=== PATIENT | female | born 1995 | race American Indian/Alaskan Native ===

== ENCOUNTER 2016-10-24 20:05 | Emergency (ER) | payer MEDICAID ==
[2016-10-24 20:13] VITALS: BP 120/78
[2016-10-24] MEDS ORDERED: metroNIDAZOLE 500 MG Tab PO ONE (21:35)
[2016-10-24] MEDS ORDERED: Azithromycin 250 MG Tab PO ONE (21:35)
[2016-10-24] MEDS ORDERED: cefTRIAXone 250 MG Vial IM ONE (21:35)
--- NOTE | 2016-10-24 21:38 | EDM.PDOC ---
ED HPI GENERAL MEDICAL PROBLEM - General Chief Complaint: [employer]ATION [employer]ILOR Problem Stated Complaint: POSS INFECTED IUD Time Seen by Provider: 10/24/16 20:22 Source of Information: Reports: Patient History Limitations: Reports: No Limitations - History of Present Illness INITIAL COMMENTS - FREE TEXT/NARRATIVE: 21 y/o F concern for possible infected IUD. States she's had malodorous yellow vaginal discharge x 4 days. New sexual partner x 2 weeks, states they're using condoms. He has no symptoms. No abdominal pain. No dysuria. Tried monostat with no change. IUD placed [address] Maurice. No fever. No vomiting. 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 Denies: Dysuria Skin: Reports: No Symptoms ED EXAM, GI/ABD - Physical Exam Exam: See Below Exam Limited By: No Limitations General Appearance: Alert, WD/WN, No Apparent Distress Ears: Normal External Exam Nose: Normal Inspection, Normal Mucosa, No Blood Throat/Mouth: Normal Inspection, Normal Oropharynx, Normal Voice, No Airway Compromise Head: Atraumatic, Normocephalic Neck: Normal Inspection, Supple, Non-Tender, Full Range of Motion Respiratory/Chest: No Respiratory Distress, Lungs Clear, Normal Breath Sounds Cardiovascular: Normal Peripheral Pulses GI/Abdominal Exam: Soft, Non-Tender, No Distention. No: Rebound (Female) Exam: Normal External Exam, Cervical Discharge, Vaginal Discharge, Other (yellow discharge with some cervicitis, no CMT) Extremities: Normal Inspection Neurological: Alert, Oriented, No Motor/Sensory Deficits Psychiatric: Normal Affect, Normal Mood Skin Exam: Warm, Dry, Intact, Normal Color, No Rash Course - Vital Signs Last Recorded V/S: Last Vital Signs Temp 36.6 C 10/24/16 20:12 Pulse 80 10/24/16 20:12 Resp 20 10/24/16 20:12 BP 120/78 10/24/16 20:12 Pulse Ox 100 10/24/16 20:12 - Orders/Labs/Meds Orders: Active Orders 24 hr Category Date Time Status Pelvic Exam, Set Up [RC] ASDIRECTED Care 10/24/16 20:22 Active GC/CHLAMYDIA BY PCR [MOLEC] Stat Lab 10/24/16 20:55 Received Labs: Laboratory Tests 10/24/16 10/24/16 Range/Units 21:25 21:25 Urine Color Yellow (Yellow) Urine Appearance Clear (Clear) Urine pH 6.5 (5.0-8.0) Ur Specific [place] > or = 1.030 (1.005-1.030) Urine Protein 1+ H (Negative) Urine Glucose (UA) Negative (Negative) Urine Ketones Negative (Negative) Urine Occult Blood Trace-intact H (Negative) Urine Nitrite Negative (Negative) Urine Bilirubin Negative (Negative) Urine Urobilinogen 0.2 (0.2-1.0) Ur Leukocyte Esterase Negative (Negative) Urine RBC 0-5 (0-5) /hpf Urine WBC 5-10 H (0-5) /hpf Ur Epithelial Cells 5-10 H (0-5) /hpf Urine Bacteria Rare (FEW) /hpf Urine Mucus Few (FEW) /hpf Urine HCG, Qual Negative (NEGATIVE) Meds: Medications Discontinued Medications Generic Name Dose Route Start Last Admin Trade Name Freq PRN Reason Stop Dose Admin Azithromycin 1,000 mg 10/24/16 21:35 10/24/16 22:33 Zithromax PO 10/24/16 21:36 Not Given ONETIME ONE Ceftriaxone Sodium 250 mg 10/24/16 21:35 10/24/16 22:33 Rocephin IM 10/24/16 21:36 Not Given ONETIME ONE Metronidazole 500 mg 10/24/16 21:35 10/24/16 22:33 Flagyl PO 10/24/16 21:36 Not Given ONETIME ONE - Re-Assessments/Exams Free Text/Narrative Re-Assessment/Exam: 10/24/16 21:53 Swabs sent. Will empirically treat. Discussed abstinence and need for partner treatment once she knows swab results. She'll f/u with Dr. Maurice this week. 10/24/16 23:09 Nurse notified me that patient eloped before her antibiotics were given. Nurse was occupied with critically ill patient at the time. Departure - Departure Time of Disposition: 21:36 Disposition: Home, Self-Care 01 Clinical Impression: Vaginal discharge - Discharge Information Prescriptions: metroNIDAZOLE [Flagyl] 500 mg PO Q8H #21 tablet Instructions: Vaginal Yeast Infection, Adult Referrals: Kelli Maurice MD [Primary Care Provider] - Forms: ED Department Discharge Additional Instructions: 1. Follow up with Dr. Maurice as soon as possible 2. You were given ceftriaxone and azithromycin in the Emergency Department to cover for possible pelvic infection. No sex until your swab results are available so your partner can be treated too if necessary. Dr. Maurice can help you follow up your results. - My Orders Last 24 Hours: My Active Orders 10/24/16 20:22 Pelvic Exam, Set Up [RC] ASDIRECTED 10/24/16 20:55 GC/CHLAMYDIA BY PCR [MOLEC] Stat - Assessment/Plan Last 24 Hours: My Active Orders 10/24/16 20:22 Pelvic Exam, Set Up [RC] ASDIRECTED 10/24/16 20:55 GC/CHLAMYDIA BY PCR [MOLEC] Stat
[2016-10-25 00:30] LABS: N. GONORRHOEAE BY PCR NOT DETECTED
[2016-10-25 00:38] LABS: C. TRACHOMATIS BY PCR DETECTED
== END 2016-10-24 22:32 | disposition home or self-care (01) ==
LOC: SUPCPDRO 20:05 → JD.ED 20:05
DX: N89.8 Other specified noninflammatory disorders of vagina (principal); F17.210 Nicotine dependence, cigarettes, uncomplicated
CPT/HCPCS: 81001; 81025; 87491; 87591; 99283; 99284

== ENCOUNTER 2016-12-02 03:01 | Emergency (ER) | payer MEDICAID ==
[2016-12-02] MEDS ORDERED: Lactated Ringers 1,000 ML IV ONE ×2 (03:09→04:11)
[2016-12-02] MEDS ORDERED: Ondansetron 4 MG/2 ML SDV IVPUSH ONE (03:10)
[2016-12-02] MEDS ORDERED: Ondansetron 4 MG/2 ML SDV ONE (03:14)
--- NOTE | 2016-12-02 03:16 | EDM.PDOC ---
ED HPI GENERAL MEDICAL PROBLEM - General Chief Complaint: Drug or Alcohol Abuse Stated Complaint: UNRESPONSIVE Time Seen by Provider: 12/02/16 03:08 - History of Present Illness INITIAL COMMENTS - FREE TEXT/NARRATIVE: 21-year-old female brought into the emergency room by her significant other with a reaction. The patient is hyperventilating with coaching she can bring her respiratory rate down to communicate. The patient's been drinking too much this evening significant other gives a history of 5 or 6 shots within the last couple of hours they deny other drugs. The patient denies any pain. When she was hyperventilating she did say it was hard for her to slow her rate down however with coaching she could and then she felt better. The patient was started on IV fluids and responded favorably. After this episode cleared she denied any symptoms again denied any drug use. 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: - Past Surgical History HEENT Surgical History: Reports: Oral Surgery Social & Family History - Tobacco Use Smoking Status *Q: Current Every Day Smoker Years of Tobacco use: 6 Packs/Tins Daily: 0.3 Used Tobacco, but Quit: Yes Month Tobacco Last Used: September Second Hand Smoke Exposure: Yes - Caffeine Use Caffeine Use: Reports: None - Alcohol Use Days Per Week of Alcohol Use: 0 - Recreational Drug Use Recreational Drug Use: No ED ROS GENERAL - Review of Systems Review Of Systems: See Below (Initially review of systems not obtainable that after she calmed down it was obtainable) Constitutional: Reports: No Symptoms HEENT: Reports: No Symptoms Respiratory: Reports: No Symptoms Cardiovascular: Reports: No Symptoms GI/Abdominal: Reports: No Symptoms : Reports: No Symptoms Neurological: Denies: Confusion, Dizziness, Headache ED EXAM, GENERAL - Physical Exam Exam: See Below Exam Limited By: Other (Initially upon arrival the patient was hyperventilating when this calmed down the patient was easy to examine and obtain history from) General Appearance: Other (Initially she was quite anxious and hyperventilating when hyperventilation was controlled she was calm and cooperative) Eye Exam: Bilateral Eye: PERRL Ears: Normal External Exam, Normal Canal, Hearing Grossly Normal, Normal TMs Nose: Normal Inspection, Normal Mucosa, No Blood Throat/Mouth: Normal Inspection, Normal Lips, Normal Teeth, Normal Gums, Normal Oropharynx, Normal Voice, No Airway Compromise Head: Atraumatic, Normocephalic Neck: Normal Inspection, Supple, Non-Tender, Full Range of Motion. No: Lymphadenopathy (L), Lymphadenopathy (R) Respiratory/Chest: No Respiratory Distress, Lungs Clear, Normal Breath Sounds, Other (Initially she was hyperventilating when this did resolve her respiratory status was fine) Cardiovascular: Regular Rate, Rhythm, No Edema, No Murmur GI/Abdominal: Normal Bowel Sounds, Soft, Non-Tender Back Exam: Normal Inspection. No: CVA Tenderness (L), CVA Tenderness (R) Extremities: Normal Inspection, No Pedal Edema Neurological: Alert, Other (Initially the patient was hyperventilating obviously acute alcohol intoxication however she was acting like she may have some stimulant medication on board when she stopped hyperventilating she was quite cooperative) Psychiatric: Anxious Course - Vital Signs Last Recorded V/S: Last Vital Signs Temp 36.5 C 12/02/16 03:11 Pulse 124 H 12/02/16 03:11 Resp 35 H 12/02/16 03:11 BP 119/90 12/02/16 03:11 Pulse Ox 100 12/02/16 03:11 - Orders/Labs/Meds Orders: Active Orders 24 hr Category Date Time Status EKG Documentation Completion [RC] STAT Care 12/02/16 03:16 Active Chest 1V Frontal [CR] Stat Exams 12/02/16 03:33 Taken Labs: Laboratory Tests 12/02/16 12/02/16 12/02/16 Range/Units 03:10 03:10 03:20 WBC 11.93 H (3.98-10.04) K/mm3 RBC 5.09 (3.98-5.22) M/mm3 Hgb 15.0 (11.2-15.7) gm/L Hct 44.8 (34.1-44.9) % MCV 88.0 (79.4-94.8) fl MCH 29.5 (25.6-32.2) pg MCHC 33.5 (32.2-35.5) g/dl RDW Std Deviation 46.0 (36.4-46.3) fL Plt Count 288 (182-369) K/mm3 MPV 10.8 (9.4-12.3) fl Neutrophils % (Manual) 62 H (40-60) % Band Neutrophils % 0 (0-10) % Lymphocytes % (Manual) 35 (20-40) % Atypical Lymphs % 0 % Monocytes % (Manual) 3 (2-10) % Eosinophils % (Manual) 0 L (0.7-5.8) % Basophils % (Manual) 0 L (0.1-1.2) Platelet Estimate Adequate Plt Morphology Comment Normal RBC Morph Comment Normal Sodium 141 (136-145) mEq/L Potassium 3.5 (3.5-5.1) mEq/L Chloride 102 (98-107) mEq/L Carbon Dioxide 19 L (21-32) mEq/L Anion Gap 23.5 H (5-15) BUN 9 (7-18) mg/dL Creatinine 0.9 (0.55-1.02) mg/dL Est Cr Clr Drug Dosing TNP Estimated GFR (MDRD) > 60 (>60) mL/min BUN/Creatinine Ratio 10.0 L (14-18) Glucose 111 H (74-106) mg/dL Calcium 10.5 H (8.5-10.1) mg/dL Total Bilirubin 0.6 (0.2-1.0) mg/dL AST 16 (15-37) U/L ALT 26 (14-59) U/L Alkaline Phosphatase 84 (46-116) U/L Total Protein 9.3 H (6.4-8.2) g/dl Albumin 4.9 (3.4-5.0) g/dl Globulin 4.4 gm/dL Albumin/Globulin Ratio 1.1 (1-2) Lipase 117 (73-393) U/L Urine Color (Yellow) Urine Appearance (Clear) Urine pH (5.0-8.0) Ur Specific [place] (1.005-1.030) Urine Protein (Negative) Urine Glucose (UA) (Negative) Urine Ketones (Negative) Urine Occult Blood (Negative) Urine Nitrite (Negative) Urine Bilirubin (Negative) Urine Urobilinogen (0.2-1.0) Ur Leukocyte Esterase (Negative) Urine RBC (0-5) /hpf Urine WBC (0-5) /hpf Ur Epithelial Cells (0-5) /hpf Amorphous Sediment (NOT SEEN) /hpf Urine Bacteria (FEW) /hpf Urine Mucus (FEW) /hpf Urine Opiates Screen Negative (NEGATIVE) Ur Buprenorphine Scrn Negative (NEGATIVE) Ur Oxycodone Screen Negative (NEGATIVE) Urine Methadone Screen Negative (NEGATIVE) Ur Propoxyphene Screen Negative (NEGATIVE) Ur Barbiturates Screen Negative (NEGATIVE) Ur Tricyclics Screen Negative (NEGATIVE) Ur Phencyclidine Scrn Negative (NEGATIVE) Ur Amphetamine Screen Presumptive positive H (NEGATIVE) U Methamphetamines Scrn Presumptive positive H (NEGATIVE) U Benzodiazepines Scrn Presumptive positive H (NEGATIVE) U Cocaine Metab Screen Negative (NEGATIVE) U Marijuana (THC) Screen Presumptive positive H (NEGATIVE) Ethyl Alcohol 0.16 (0.00) gm% 12/02/16 Range/Units 03:20 WBC (3.98-10.04) K/mm3 RBC (3.98-5.22) M/mm3 Hgb (11.2-15.7) gm/L Hct (34.1-44.9) % MCV (79.4-94.8) fl MCH (25.6-32.2) pg MCHC (32.2-35.5) g/dl RDW Std Deviation (36.4-46.3) fL Plt Count (182-369) K/mm3 MPV (9.4-12.3) fl Neutrophils % (Manual) (40-60) % Band Neutrophils % (0-10) % Lymphocytes % (Manual) (20-40) % Atypical Lymphs % % Monocytes % (Manual) (2-10) % Eosinophils % (Manual) (0.7-5.8) % Basophils % (Manual) (0.1-1.2) Platelet Estimate Plt Morphology Comment RBC Morph Comment Sodium (136-145) mEq/L Potassium (3.5-5.1) mEq/L Chloride (98-107) mEq/L Carbon Dioxide (21-32) mEq/L Anion Gap (5-15) BUN (7-18) mg/dL Creatinine (0.55-1.02) mg/dL Est Cr Clr Drug Dosing Estimated GFR (MDRD) (>60) mL/min BUN/Creatinine Ratio (14-18) Glucose (74-106) mg/dL Calcium (8.5-10.1) mg/dL Total Bilirubin (0.2-1.0) mg/dL AST (15-37) U/L ALT (14-59) U/L Alkaline Phosphatase (46-116) U/L Total Protein (6.4-8.2) g/dl Albumin (3.4-5.0) g/dl Globulin gm/dL Albumin/Globulin Ratio (1-2) Lipase (73-393) U/L Urine Color Yellow (Yellow) Urine Appearance Clear (Clear) Urine pH 6.0 (5.0-8.0) Ur Specific [place] 1.020 (1.005-1.030) Urine Protein 1+ H (Negative) Urine Glucose (UA) Negative (Negative) Urine Ketones 2+ H (Negative) Urine Occult Blood Negative (Negative) Urine Nitrite Negative (Negative) Urine Bilirubin Negative (Negative) Urine Urobilinogen 0.2 (0.2-1.0) Ur Leukocyte Esterase Negative (Negative) Urine RBC Not seen (0-5) /hpf Urine WBC 0-5 (0-5) /hpf Ur Epithelial Cells 0-5 (0-5) /hpf Amorphous Sediment Few H (NOT SEEN) /hpf Urine Bacteria Not seen (FEW) /hpf Urine Mucus Not seen (FEW) /hpf Urine Opiates Screen (NEGATIVE) Ur Buprenorphine Scrn (NEGATIVE) Ur Oxycodone Screen (NEGATIVE) Urine Methadone Screen (NEGATIVE) Ur Propoxyphene Screen (NEGATIVE) Ur Barbiturates Screen (NEGATIVE) Ur Tricyclics Screen (NEGATIVE) Ur Phencyclidine Scrn (NEGATIVE) Ur Amphetamine Screen (NEGATIVE) U Methamphetamines Scrn (NEGATIVE) U Benzodiazepines Scrn (NEGATIVE) U Cocaine Metab Screen (NEGATIVE) U Marijuana (THC) Screen (NEGATIVE) Ethyl Alcohol (0.00) gm% Meds: Medications Discontinued Medications Generic Name Dose Route Start Last Admin Trade Name Freq PRN Reason Stop Dose Admin Lactated Ringer's 1,000 mls @ 999 mls/min 12/02/16 03:09 12/02/16 03:27 Ringers, Lactated IV 12/02/16 03:10 999 mls/min .BOLUS ONE Administration Lactated Ringer's 1,000 mls @ 999 mls/hr 12/02/16 04:11 12/02/16 04:18 Ringers, Lactated IV 12/02/16 05:11 999 mls/hr .BOLUS ONE Administration Ondansetron HCl 4 mg 12/02/16 03:10 12/02/16 03:28 Zofran IVPUSH 12/02/16 03:11 Not Given ONETIME ONE Ondansetron HCl Confirm 12/02/16 03:14 12/02/16 03:28 Zofran Administered 12/02/16 03:15 4 mg Dose Administration 4 mg .ROUTE .STK-MED ONE Potassium Chloride 40 meq 12/02/16 05:57 12/02/16 06:00 Klor-Con M20 PO 12/02/16 05:58 40 meq ONETIME ONE Administration - Re-Assessments/Exams Free Text/Narrative Re-Assessment/Exam: 12/02/16 06:11 Upon arrival it was suspected the patient was acutely intoxicated she was acting however like she has stimulant medication on board and she was hyperventilating. When she was able to calm down and stop hyperventilating her situation normalized. Patient was given a couple liters of fluid and labs were obtained blood alcohol was 0.16 toxicology positive for benzodiazepines and methamphetamine and amphetamine patient denied any illicit drugs however did state that she smokes marijuana recently. The patient has been observed and his remained stable here in the emergency department she will be discharged home. Departure - Departure Time of Disposition: 06:12 Disposition: Home, Self-Care 01 Clinical Impression: Alcohol intoxication, Anxiety reaction - Discharge Information Additional Instructions: Return to the emergency room with any questions problems or worsening symptoms. Avoid alcohol as well as illicit drugs. Follow-up with your regular provider on Tuesday for recheck. - My Orders Last 24 Hours: My Active Orders 12/02/16 03:16 EKG Documentation Completion [RC] STAT 12/02/16 03:33 Chest 1V Frontal [CR] Stat - Assessment/Plan Last 24 Hours: My Active Orders 12/02/16 03:16 EKG Documentation Completion [RC] STAT 12/02/16 03:33 Chest 1V Frontal [CR] Stat
[2016-12-02 03:19] VITALS: BP 119/90
[2016-12-02] MEDS ORDERED: Potassium Chloride 20 MEQ Tab.ER PO ONE (05:57)
--- NOTE | 2016-12-02 09:42 | CR ---
Chest: Portable view of the chest was obtained. Comparison: No previous study. Heart size and mediastinum are within normal limits for portable technique. Lungs are clear. Bony structures are grossly intact. Impression: 1. Nothing acute is appreciated on portable chest x-ray. Diagnostic code #1
== END 2016-12-02 06:20 | disposition home or self-care (01) ==
LOC: JD.ED 03:01
DX: F41.9 Anxiety disorder, unspecified (principal); F10.120 Alcohol abuse with intoxication, uncomplicated; F17.210 Nicotine dependence, cigarettes, uncomplicated
CPT/HCPCS: 36415; 71010; 80053; 80306; 81001; 83690; 85025; 93005; 96361; 96374; 99285; A9270; G0480; J2405; J7120; 99284

== ENCOUNTER 2017-02-06 12:20 | Emergency (ER) | payer MEDICAID ==
[2017-02-06 12:28] VITALS: BP 123/87
[2017-02-06] MEDS ORDERED: Sodium Chloride 0.9% 10 ML Syringe FLUSH PRN (12:50)
[2017-02-06] MEDS ORDERED: Ondansetron 4 MG/2 ML SDV IVPUSH ONE (12:50)
[2017-02-06] MEDS ORDERED: Ketorolac 30 MG/ML SDV IVPUSH ONE (12:50)
--- NOTE | 2017-02-06 13:04 | EDM.PDOC ---
ED HPI GENERAL MEDICAL PROBLEM - General Chief Complaint: Respiratory Problem Stated Complaint: SORE THROAT Time Seen by Provider: 02/06/17 12:51 Source of Information: Reports: Patient History Limitations: Reports: No Limitations - History of Present Illness INITIAL COMMENTS - FREE TEXT/NARRATIVE: 22-year-old female presents for evaluation of a cough and sore throat. Patient reports that her cough or started about 4 weeks ago. She was seen at the [facility]. Instructed to use Tylenol or Motrin. No Testing was done such as influenza, strep or any chest x-rays. She states since being seen her symptoms have steadily worsened. She reports that she feels more congested. She states he also sore throat which started about 1 week ago. She reports associated symptoms of chills, rigors, nausea and one episode of vomiting. She also reports headaches and bodyaches. She states that her ears " full". No fevers. Patient is not on any medications. She does have an IUD in place. Reports she is currently on her menstrual cycle has a history of endometriosis therefore she is having worsening cramps and low back pain. She denies any urinary symptoms including dysuria. Denies any recent travel. Reports that her son was initially ill with a cough but his symptoms have since improved. No other ill contacts. 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, - Past Surgical History HEENT Surgical History: Reports: Oral Surgery Social & Family History - Family History Family Medical History: Noncontributory - Tobacco Use Smoking Status *Q: Former Smoker Years of Tobacco use: 6 Packs/Tins Daily: 0.3 Used Tobacco, but Quit: Yes Month Tobacco Last Used: 3 weeks ago Second Hand Smoke Exposure: Yes - Caffeine Use Caffeine Use: Reports: None - Alcohol Use Days Per Week of Alcohol Use: 0 - Recreational Drug Use Recreational Drug Use: No ED ROS GENERAL - Review of Systems Review Of Systems: See Below Constitutional: Reports: Chills, Malaise, Diaphoresis, Decreased Appetite. Denies: Fever HEENT: Reports: Ear Pain, Throat Pain Respiratory: Reports: Cough GI/Abdominal: Reports: Nausea, Vomiting : Reports: Other (states she is currently on her menstrual cycle). Denies: Dysuria Neurological: Reports: Headache ED EXAM, GENERAL - Physical Exam Exam: See Below Exam Limited By: No Limitations General Appearance: Alert, WD/WN, No Apparent Distress Eye Exam: Bilateral Eye: Normal Inspection Ears: Normal External Exam, Other (right TM obscured by cerumen) Ear Exam: Left Ear: TM normal Nose: Normal Inspection Throat/Mouth: Normal Inspection, Normal Voice, No Airway Compromise Respiratory/Chest: No Respiratory Distress, Lungs Clear, Normal Breath Sounds Cardiovascular: Normal Peripheral Pulses, Regular Rate, Rhythm, No Murmur Neurological: Alert, Oriented, Normal Cognition Psychiatric: Normal Affect, Normal Mood Skin Exam: Warm, Dry, Normal Color Course - Vital Signs Last Recorded V/S: Last Vital Signs Temp 36.2 C 02/06/17 12:27 Pulse 88 02/06/17 12:27 Resp 20 02/06/17 12:27 BP 123/87 02/06/17 12:27 Pulse Ox 99 02/06/17 12:27 - Orders/Labs/Meds Orders: Active Orders 24 hr Category Date Time Status Peripheral IV Care [RC] . DIRECTED Care 02/06/17 12:51 Ordered Chest 2V [CR] Stat Exams 02/06/17 12:50 Ordered CULTURE STREP A CONFIRMATION [RM] Stat Lab 02/06/17 13:19 Results STREP SCRN A RAPID W CULT CONF [RM] Stat Lab 02/06/17 12:50 Uncollected Sodium Chloride 0.9% [Saline Flush] Med 02/06/17 12:50 Ordered 10 ml FLUSH ASDIRECTED PRN Peripheral IV Insertion Adult [OM.PC] Routine Oth 02/06/17 12:50 Ordered Medication Orders Sodium Chloride (Saline Flush) 10 ml FLUSH ASDIRECTED PRN PRN Reason: Keep Vein Open Last Admin: 02/06/17 13:09 Dose: 10 ml Labs: Laboratory Tests 11/08/1802/06/17 02/06/17 Range/Units 13:05 13:05 13:05 WBC 12.22 H (3.98-10.04) K/mm3 RBC 4.66 (3.98-5.22) M/mm3 Hgb 14.2 (11.2-15.7) gm/L Hct 42.1 (34.1-44.9) % MCV 90.3 (79.4-94.8) fl MCH 30.5 (25.6-32.2) pg MCHC 33.7 (32.2-35.5) g/dl RDW Std Deviation 45.0 (36.4-46.3) fL Plt Count 256 (182-369) K/mm3 MPV 11.0 (9.4-12.3) fl Neut % (Auto) 69.9 (34.0-71.1) % Lymph % (Auto) 21.1 (19.3-51.7) % [place] % (Auto) 7.7 (4.7-12.5) % Eos % (Auto) 0.3 L (0.7-5.8) Baso % (Auto) 0.7 (0.1-1.2) % Neut # (Auto) 8.54 H (1.56-6.13) K/mm3 Lymph # (Auto) 2.58 (1.18-3.74) K/mm3 [place] # (Auto) 0.94 H (0.24-0.36) K/mm3 Eos # (Auto) 0.04 (0.04-0.36) K/mm3 Baso # (Auto) 0.08 (0.01-0.08) K/mm3 Manual Slide Review Normal smear Sodium 142 (136-145) mEq/L Potassium 3.6 (3.5-5.1) mEq/L Chloride 103 (98-107) mEq/L Carbon Dioxide 24 (21-32) mEq/L Anion Gap 18.6 H (5-15) BUN 9 (7-18) mg/dL Creatinine 0.6 (0.55-1.02) mg/dL Est Cr Clr Drug Dosing 128.08 mL/min Estimated GFR (MDRD) > 60 (>60) mL/min BUN/Creatinine Ratio 15.0 (14-18) Glucose 97 (74-106) mg/dL Calcium 9.5 (8.5-10.1) mg/dL Total Bilirubin 0.5 (0.2-1.0) mg/dL AST 14 L (15-37) U/L ALT 25 (14-59) U/L Alkaline Phosphatase 80 (46-116) U/L Total Protein 9.0 H (6.4-8.2) g/dl Albumin 4.4 (3.4-5.0) g/dl Globulin 4.6 gm/dL Albumin/Globulin Ratio 1.0 (1-2) Monoscreen Negative (NEGATIVE) Meds: Medications Generic Name Dose Route Start Last Admin Trade Name Freq PRN Reason Stop Dose Admin Sodium Chloride 10 ml 02/06/17 12:50 02/06/17 13:09 Saline Flush FLUSH 10 ml ASDIRECTED PRN Administration Keep Vein Open Discontinued Medications Generic Name Dose Route Start Last Admin Trade Name Freq PRN Reason Stop Dose Admin Ketorolac Tromethamine 30 mg 02/06/17 12:50 02/06/17 13:09 Toradol IVPUSH 02/06/17 12:51 30 mg ONETIME ONE Administration Ondansetron HCl 4 mg 02/06/17 12:50 02/06/17 13:08 Zofran IVPUSH 02/06/17 12:51 4 mg ONETIME ONE Administration - Radiology Interpretation Free Text/Narrative:: 2 view chest xray shows no acute intrathoracic process. - Re-Assessments/Exams Free Text/Narrative Re-Assessment/Exam: 02/06/17 14:40 I reviewed the chest xray and labs with the patient. Headaches, nausea and symptoms improved. Will treat for bronchitis. Negative for mono, strep and influenza. Discharge instructions as documented. Departure - Departure Time of Disposition: 14:42 Disposition: Home, Self-Care 01 Condition: Good Clinical Impression: Bronchitis - Discharge Information Prescriptions: Azithromycin [IJP: Azithromycin] 250 mg PO DAILY #6 tab Ondansetron [Zofran ODT] 4 mg PO Q8H PRN #12 tab.dis PRN Reason: Nausea Instructions: Acute Bronchitis Referrals: Adore Calderon MD [Primary Care Provider] - Forms: ED Department Discharge Additional Instructions: take azithromycin as prescribed. 2 tabs PO day 1 then 1 tab PO days 2-5. Recommend [id number] Tylenol or Motrin as needed for additional symptom relief. Follow-up with family medicine provided her symptoms are now much better in 2 weeks. Rest. make sure you are drinking plenty of fluids. Zofran 1 tab sublingual every 8 hours as needed for nausea. Take about 20 to 30 minutes prior to eating. Please return to ER if your symptoms change or worsen. - My Orders Last 24 Hours: My Active Orders 02/06/17 12:50 Chest 2V [CR] Stat STREP SCRN A RAPID W CULT CONF [RM] Stat Sodium Chloride 0.9% [Saline Flush] 10 ml FLUSH ASDIRECTED PRN Peripheral IV Insertion Adult [OM.PC] Routine 02/06/17 12:51 Peripheral IV Care [RC] . DIRECTED 02/06/17 13:19 CULTURE STREP A CONFIRMATION [RM] Stat - Assessment/Plan Last 24 Hours: My Active Orders 02/06/17 12:50 Chest 2V [CR] Stat STREP SCRN A RAPID W CULT CONF [RM] Stat Sodium Chloride 0.9% [Saline Flush] 10 ml FLUSH ASDIRECTED PRN Peripheral IV Insertion Adult [OM.PC] Routine 02/06/17 12:51 Peripheral IV Care [RC] . DIRECTED 02/06/17 13:19 CULTURE STREP A CONFIRMATION [RM] Stat
--- NOTE | 2017-02-07 07:38 | CR ---
Chest: Two views of the chest are obtained. Comparison: Previous chest x-ray of 12/02/16. Heart size and mediastinum are normal. Lungs are clear. Minimal scoliosis is present within the spine. Impression: 1. Incidental finding. Nothing acute is identified on two-view chest x-ray. Diagnostic code #2
== END 2017-02-06 15:02 | disposition home or self-care (01) ==
LOC: JD.ED 12:20
DX: J40 Bronchitis, not specified as acute or chronic (principal); Z79.899 Other long term (current) drug therapy; Z87.891 Personal history of nicotine dependence
CPT/HCPCS: 36415; 71020; 80053; 85025; 86308; 87081; 87430; 87804; 96374; 96375; 99284; J1885; J2405; J7050

== ENCOUNTER 2018-09-15 07:44 | Inpatient (IN) | payer MEDICAID ==
[2018-09-15] MEDS ORDERED: Nalbuphine 10 MG/1 ML Vial IVPUSH PRN (08:14)
[2018-09-15] MEDS ORDERED: Ondansetron 4 MG/2 ML SDV IVPUSH PRN ×2 (08:14→08:57)
[2018-09-15] MEDS ORDERED: Sodium Chloride 0.9% 10 ML Syringe FLUSH PRN (08:14)
[2018-09-15] MEDS ORDERED: Ampicillin 2 GM in Sodium Chloride 0.9% 100 ML IV ONE (08:14)
--- NOTE | 2018-09-15 08:17 | PCM.LDHP ---
L&D History of Present Illness - General Date of Service: 09/15/18 Admit Problem/Dx: Patient Status Order with Admit Dx/Problem 09/15/18 08:14 Patient Status [ADT] Routine Admission Diagnosis/Problem Admission Diagnosis/Problem Normal labor Source of Information: Patient History Limitations: Reports: No Limitations - History of Present Illness Introduction:: Patient is a 23 y/o at 39 3/7 wks who presents in labor. yesterday in clinic found to be about 4 cm dilated. Started ralf this AM. On nursing assessment is 6 cm. Otherwise doing well. 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 (Approximate): - Past Surgical History HEENT Surgical History: Reports: Oral Surgery Social & Family History - Family History Family Medical History: Noncontributory - Tobacco Use Smoking Status *Q: Former Smoker - Caffeine Use Caffeine Use: Reports: None - Alcohol Use Alcohol Use History: No - Recreational Drug Use Recreational Drug Use: No - Sexual History Sexual History: Reports: Sexually Active - Living Situation & Occupation Living situation: Reports: with Significant Other H&P Review of Systems - Review of Systems: Review Of Systems: See Below General: Reports: No Symptoms Pulmonary: Reports: No Symptoms Cardiovascular: Reports: No Symptoms Gastrointestinal: Reports: Abdominal Pain (contractions) Genitourinary: Reports: No Symptoms Musculoskeletal: Reports: No Symptoms Psychiatric: Reports: No Symptoms Neurological: Reports: No Symptoms L&D Exam - Exam Exam: See Below - Vital Signs Weight: 82.1 kg - OB Specific Contraction Intensity: Moderate to Strong Movement: Active Heart Tones: Present Heart Tones per Min: 140 Heart Rate (FHR) Variability: Moderate (6-25 bmp) Presentation: Vertex - Quan Score Quan Score Cervix Position: Anterior Quan Score Consistency: Soft Quan Score Effacement: >80% Quan Score Dilation: > 5 cm Quan Score 's Station: -1 ,0 Quan Score Total: 12 - Exam General: Alert, Oriented, Cooperative Lungs: Clear to Auscultation, Normal Respiratory Effort Cardiovascular: Regular Rate, Regular Rhythm GI/Abdominal Exam: Soft, Non-Tender Genitourinary: Normal external exam Extremities: Normal Inspection Skin: Warm, Dry, Intact - Problem List (1) 39 weeks gestation of SNOMED Code(s): 62110790 ICD Code: Z3A.39 - 39 WEEKS GESTATION OF Status: Acute Current Visit: Yes (2) GBS (group B Streptococcus carrier), +RV culture, currently SNOMED Code(s): 9188223481052, [id number], 1942674194062 ICD Code: O99.820 - STREPTOCOCCUS B CARRIER STATE COMPLICATING Status: Acute Current Visit: Yes (3) Normal labor SNOMED Code(s): 03310186 ICD Code: O80 - ENCOUNTER FOR FULL-TERM UNCOMPLICATED DELIVERY; Z37.9 - OUTCOME OF DELIVERY, UNSPECIFIED Status: Acute Current Visit: Yes Problem List Initiated/Reviewed/Updated: Yes Orders Last 24hrs: Active Orders 24 hr Category Date Time Status Patient Status [ADT] Routine ADT 09/15/18 08:14 Ordered Activity as Tolerated [RC] PFP Care 09/15/18 08:14 Ordered Communication Order [RC] ASDIRECTED Care 09/15/18 08:14 Ordered Heart Tones [RC] ASDIRECTED Care 09/15/18 08:15 Ordered Non Stress Test [RC] PER UNIT ROUTINE Care 09/15/18 08:14 Ordered Notify Provider [RC] PFP Care 09/15/18 08:14 Ordered Notify Provider [RC] PRN Care 09/15/18 08:14 Ordered Peripheral IV Care [RC] . DIRECTED Care 09/15/18 08:15 Ordered Vital Signs [RC] PER UNIT ROUTINE Care 09/15/18 08:14 Ordered Regular Diet [DIET] Diet 09/15/18 Breakfast Ordered CBC W/O DIFF,HEMOGRAM [HEME] Stat Lab 09/15/18 08:14 Ordered RAPID PLASMA REAGIN,RPR [CHEM] Routine Lab 09/15/18 08:14 Ordered TYPE AND SCREEN [BBK] Stat Lab 09/15/18 08:14 Ordered Ampicillin 1 gm Med 09/15/18 08:15 Ordered Sodium Chloride 0.9% [Normal Saline] 100 ml IV Q4H Ampicillin 2 gm Med 09/15/18 08:14 Ordered Sodium Chloride 0.9% [Normal Saline] 100 ml IV ONETIME Lactated Ringers [Ringers, Lactated] 1,000 ml Med 09/15/18 08:15 Ordered IV ASDIRECTED Nalbuphine [Nubain] Med 09/15/18 08:14 Ordered 10 mg IVPUSH Q2H PRN Ondansetron [Zofran] Med 09/15/18 08:14 Ordered 4 mg IVPUSH Q4H PRN Oxytocin/Lactated Ringers [Pitocin in LR 10 Units/1,000 Med 09/15/18 08:15 Ordered ML] 10 unit in 1,000 ml IV .CONTINUOUS Sodium Chloride 0.9% [Saline Flush] Med 09/15/18 08:14 Ordered 10 ml FLUSH ASDIRECTED PRN Electronic Heart Tones Ext w TOCO [WOMSER] Oth 09/15/18 08:14 Ordered Routine Electronic Heart Tones Internal [WOMSER] Per Unit Ot 09/15/18 08:14 Ordered Routine Peripheral IV Insertion Adult [OM.PC] Routine Oth 09/15/18 08:14 Ordered Resuscitation Status Routine Resus Stat 09/15/18 08:14 Ordered Assessment/Plan Comment:: 23 y/o at 39 3/7 wks presents in labor * Labs * GBS positive, will start Ampicillin * Pain management per patient preference * Anticipate
[2018-09-15] MEDS: Lactated Ringers 1,000 ML IV SCH ×3 (08:29→10:26)
[2018-09-15] MEDS ORDERED: fentaNYL 100 MCG/2 ML SDV EPIDUR PRN (08:57)
[2018-09-15] MEDS ORDERED: ePHEDrine 50 MG/ML SDV IVPUSH PRN (08:57)
[2018-09-15] MEDS ORDERED: diphenhydrAMINE 50 MG/ML SDV IVPUSH PRN (08:57)
[2018-09-15] MEDS ORDERED: Bupivacaine/fentaNYL/NS 100 ML Bag EPIDUR SCH (09:00)
--- NOTE | 2018-09-15 11:15 | PCM.PREANE ---
Preanesthetic Assessment - Anesthesia/Transfusion/Family Hx Anesthesia History: Prior Anesthesia Without Reaction Family History of Anesthesia Reaction: No Transfusion History: No Prior Transfusion(s) - Review of Systems General: No Symptoms Pulmonary: No Symptoms Cardiovascular: No Symptoms Gastrointestinal: No Symptoms Neurological: No Symptoms Other: Reports: None - Physical Assessment O2 Sat by Pulse Oximetry: 100 Respiratory Rate: 16 Vital Signs: Last Vital Signs Temp 36.6 C 09/15/18 08:14 Pulse 92 09/15/18 08:14 Resp 16 09/15/18 08:14 BP 125/79 09/15/18 08:14 Pulse Ox 100 09/15/18 08:14 Height: 1.63 m Weight: 82.1 kg ASA Class: 2 Mental Status: Alert & Oriented x3 Airway Class: Mallampati = 1 Dentition: Reports: Normal Dentition Thyro-Mental Finger Breadths: 3 Mouth Opening Finger Breadths: 3 ROM/Head Extension: Full Lungs: Clear to Auscultation, Normal Respiratory Effort Cardiovascular: Regular Rate, Regular Rhythm - Lab Values: Laboratory Last Values WBC 17.31 K/mm3 (3.98-10.04) H 09/15/18 08:35 RBC 3.38 M/mm3 (3.98-5.22) L 09/15/18 08:35 Hgb 9.9 gm/L (11.2-15.7) L D 09/15/18 08:35 Hct 30.9 % (34.1-44.9) L 09/15/18 08:35 MCV 91.4 fl (79.4-94.8) 09/15/18 08:35 MCH 29.3 pg (25.6-32.2) 09/15/18 08:35 MCHC 32.0 g/dl (32.2-35.5) L 09/15/18 08:35 RDW Std Deviation 51.3 fL (36.4-46.3) H 09/15/18 08:35 Plt Count 293 K/mm3 (182-369) 09/15/18 08:35 MPV 11.0 fl (9.4-12.3) 09/15/18 08:35 Blood Type A POSITIVE 09/15/18 08:35 Gel Antibody Screen Negative 09/15/18 08:35 - Allergies Allergies/Adverse Reactions: Allergies Allergy/AdvReac Type Severity Reaction Status Date / Time No Known Allergies Allergy Verified 06/23/15 07:24 - Acknowledgements Anesthesia Type Planned: Epidural Pt an Appropriate Candidate for the Planned Anesthesia: Yes Alternatives and Risks of Anesthesia Discussed w Pt/Guardian: Yes Pt/Guardian Understands and Agrees with Anesthesia Plan: Yes Additional Comments: 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 HEENT Surgical History: Reports: Oral Surgery - SUBSTANCE USE Smoking Status *Q: Former Smoker Second Hand Smoke Exposure: No Recreational Drug Use History: No - HOME MEDS Home Medications: Home Meds PNV95/Ferrous Fumarate/FA [ Tablet] 1 tab PO DAILY 02/21/18 [History] Ondansetron [Zofran ODT] 4 mg PO Q6H PRN #10 tab.dis 02/26/18 [Rx] - CURRENT (IN HOUSE) MEDS Current Meds: Current Medications Diphenhydramine HCl (Benadryl) 25 mg IVPUSH Q6H PRN PRN Reason: Pruritis Ephedrine Sulfate (Ephedrine Sulfate) 5 mg IVPUSH ASDIRECTED PRN PRN Reason: Hypotension Fentanyl (Sublimaze) 100 mcg EPIDUR ONETIME PRN PRN Reason: Pain Fentanyl/Bupivacaine HCl (Fentanyl/Bupivacaine/Ns 2 Mcg-0.125% 100 Ml) 100 ml EPIDUR ASDIRECTED [facility] Ampicillin Sodium 1 gm/ Sodium (Chloride) 100 mls @ 200 mls/hr IV Q4H [facility] Lactated Ringer's (Ringers, Lactated) 1,000 mls @ 100 mls/hr IV ASDIRECTED [facility] Last Admin: 09/15/18 10:26 Dose: 100 mls/hr Oxytocin/Lactated Ringer's (Pitocin In Lr 10 Units/1,000 Ml) 10 unit in 1,000 mls @ 500 mls/hr IV .CONTINUOUS KRISTIAN Nalbuphine HCl (Nubain) 10 mg IVPUSH Q2H PRN PRN Reason: Pain Ondansetron HCl (Zofran) 4 mg IVPUSH Q4H PRN PRN Reason: Nausea/Vomiting Ondansetron HCl (Zofran) 4 mg IVPUSH ONETIME PRN PRN Reason: Nausea/Vomiting Sodium Chloride (Saline Flush) 10 ml FLUSH ASDIRECTED PRN PRN Reason: Keep Vein Open Discontinued Medications Ampicillin Sodium 2 gm/ Sodium (Chloride) 100 mls @ 200 mls/hr IV ONETIME ONE Stop: 09/15/18 08:43 Last Admin: 09/15/18 08:29 Dose: 200 mls/hr
[2018-09-15] MEDS ORDERED: Bupivacaine 0.25% 10 ML SDV ONE (12:00)
[2018-09-15] MEDS: Ampicillin 1 GM in Sodium Chloride 0.9% 100 ML IV SCH ×2 (12:04→16:19)
--- NOTE | 2018-09-15 12:16 | PCM.PNLD ---
Labor Progress Note - VS & Meds Vital Signs: Last Vital Signs Temp 36.6 C 09/15/18 08:14 Pulse 92 09/15/18 08:14 Resp 16 09/15/18 11:15 BP 125/79 09/15/18 08:14 Pulse Ox 100 09/15/18 11:15 Active Medications: Current Medications Diphenhydramine HCl (Benadryl) 25 mg IVPUSH Q6H PRN PRN Reason: Pruritis Ephedrine Sulfate (Ephedrine Sulfate) 5 mg IVPUSH ASDIRECTED PRN PRN Reason: Hypotension Fentanyl (Sublimaze) 100 mcg EPIDUR ONETIME PRN PRN Reason: Pain Fentanyl/Bupivacaine HCl (Fentanyl/Bupivacaine/Ns 2 Mcg-0.125% 100 Ml) 100 ml EPIDUR ASDIRECTED KRISTIAN Ampicillin Sodium 1 gm/ Sodium (Chloride) 100 mls @ 200 mls/hr IV Q4H [facility] Last Admin: 09/15/18 12:04 Dose: 200 mls/hr Lactated Ringer's (Ringers, Lactated) 1,000 mls @ 100 mls/hr IV ASDIRECTED [facility] Last Admin: 09/15/18 10:26 Dose: 100 mls/hr Oxytocin/Lactated Ringer's (Pitocin In Lr 10 Units/1,000 Ml) 10 unit in 1,000 mls @ 500 mls/hr IV .CONTINUOUS KRISTIAN Nalbuphine HCl (Nubain) 10 mg IVPUSH Q2H PRN PRN Reason: Pain Ondansetron HCl (Zofran) 4 mg IVPUSH Q4H PRN PRN Reason: Nausea/Vomiting Ondansetron HCl (Zofran) 4 mg IVPUSH ONETIME PRN PRN Reason: Nausea/Vomiting Sodium Chloride (Saline Flush) 10 ml FLUSH ASDIRECTED PRN PRN Reason: Keep Vein Open Discontinued Medications Ampicillin Sodium 2 gm/ Sodium (Chloride) 100 mls @ 200 mls/hr IV ONETIME ONE Stop: 09/15/18 08:43 Last Admin: 09/15/18 08:29 Dose: 200 mls/hr - Uterine Contractions Uterine Monitoring Mode: External [place] Contraction Intensity: Moderate to Strong - Monitoring Monitor Mode: External Ultrasound Heart Rate (FHR) Baseline: 130 Heart Rate (FHR) Variability: Moderate (6-25 bmp) Accelerations: Present, 15x15 Decelerations: None Strip Review: Category I - Vaginal Exam Dilation (cm): 8-9 Effacement (Percent): 90 Station: -1 Cervical Position: Anterior - Labor Progress (Free Text) Labor Progress: Doing well. Just got 2nd antibiotic dose started. AROM performed with release of scant amount of clear fluid. Continue present management
[2018-09-15] MEDS: Oxytocin/Lactated Ringers 10 UNIT/1,000 ML BAG IV SCH ×2 (15:20→16:41)
--- NOTE | 2018-09-15 15:40 | PCM.DEL ---
L & D Note - General Info Date of Service: 09/15/18 - Delivery Note Labor: Spontaneous Delivery Outcome: Livebirth Delivery Method: Spontaneous Vaginal Delivery-Single Delivery Mode: Spontaneous Presentation: Right Occiput Anterior ([place]) Nuchal Cord: None Anesthesia Type: Epidural Amniotic Fluid Description: Clear Episiotomy Type: None Laceration: None Placenta: Intact, Spontaneous Cord: 3 Vessels Estimated Blood Loss: 200 : Bulb Syringe, Stimulated, Warmed, [address] Used, Warmer Used Delivery Comments (Free Text/Narrative):: Patient found to be complete and began pushing. With maternal pushing effort head delivered from [place] presentation. No nuchal cord present. With gentle downward traction the shoulders and body delivered. Infant placed on maternal abdomen. Cord clamped and cut. Cord blood obtained. Placenta allowed time to separate and expelled intact. Inspection of the perineum showed no laceration. - General Info Date of Service: 09/15/18 - Patient Data Vitals - Most Recent: Last Vital Signs Temp 36.6 C 09/15/18 08:14 Pulse 92 09/15/18 08:14 Resp 16 09/15/18 11:15 BP 125/79 09/15/18 08:14 Pulse Ox 100 09/15/18 11:15 Weight - Most Recent: 82.1 kg I&O - Last 24 Hours: Intake & Output 09/15/18 09/15/18 09/15/18 06:59 14:59 22:59 Intake Total 3200 Balance 3200 Lab Results Last 24 Hours: Laboratory Results - last 24 hr 09/15/18 09/15/18 Range/Units 08:35 08:35 WBC 17.31 H (3.98-10.04) K/mm3 RBC 3.38 L (3.98-5.22) M/mm3 Hgb 9.9 L D (11.2-15.7) gm/L Hct 30.9 L (34.1-44.9) % MCV 91.4 (79.4-94.8) fl MCH 29.3 (25.6-32.2) pg MCHC 32.0 L (32.2-35.5) g/dl RDW Std Deviation 51.3 H (36.4-46.3) fL Plt Count 293 (182-369) K/mm3 MPV 11.0 (9.4-12.3) fl Blood Type A POSITIVE Gel Antibody Screen Negative Med Orders - Current: Current Medications Diphenhydramine HCl (Benadryl) 25 mg IVPUSH Q6H PRN PRN Reason: Pruritis Ephedrine Sulfate (Ephedrine Sulfate) 5 mg IVPUSH ASDIRECTED PRN PRN Reason: Hypotension Fentanyl (Sublimaze) 100 mcg EPIDUR ONETIME PRN PRN Reason: Pain Fentanyl/Bupivacaine HCl (Fentanyl/Bupivacaine/Ns 2 Mcg-0.125% 100 Ml) 100 ml EPIDUR ASDIRECTED [facility] Ampicillin Sodium 1 gm/ Sodium (Chloride) 100 mls @ 200 mls/hr IV Q4H [facility] Last Admin: 09/15/18 12:04 Dose: 200 mls/hr Lactated Ringer's (Ringers, Lactated) 1,000 mls @ 100 mls/hr IV ASDIRECTED [facility] Last Admin: 09/15/18 10:26 Dose: 100 mls/hr Oxytocin/Lactated Ringer's (Pitocin In Lr 10 Units/1,000 Ml) 10 unit in 1,000 mls @ 500 mls/hr IV .CONTINUOUS [facility]IAN Nalbuphine HCl (Nubain) 10 mg IVPUSH Q2H PRN PRN Reason: Pain Ondansetron HCl (Zofran) 4 mg IVPUSH Q4H PRN PRN Reason: Nausea/Vomiting Ondansetron HCl (Zofran) 4 mg IVPUSH ONETIME PRN PRN Reason: Nausea/Vomiting Sodium Chloride (Saline Flush) 10 ml FLUSH ASDIRECTED PRN PRN Reason: Keep Vein Open Discontinued Medications Ampicillin Sodium 2 gm/ Sodium (Chloride) 100 mls @ 200 mls/hr IV ONETIME ONE Stop: 09/15/18 08:43 Last Admin: 09/15/18 08:29 Dose: 200 mls/hr - Problem List & Annotations (1) 39 weeks gestation of SNOMED Code(s): 94646487 Code(s): Z3A.39 - 39 WEEKS GESTATION OF Status: Acute Current Visit: Yes (2) GBS (group B Streptococcus carrier), +RV culture, currently SNOMED Code(s): 4004295847895, 303363128, 4371852196509 Code(s): O99.820 - STREPTOCOCCUS B CARRIER STATE COMPLICATING Status: Acute Current Visit: Yes (3) Normal labor SNOMED Code(s): 58488803 Code(s): O80 - ENCOUNTER FOR FULL-TERM UNCOMPLICATED DELIVERY; Z37.9 - OUTCOME OF DELIVERY, UNSPECIFIED Status: Acute Current Visit: Yes (4) Vaginal delivery SNOMED Code(s): 172573019 Code(s): O80 - ENCOUNTER FOR FULL-TERM UNCOMPLICATED DELIVERY Status: Acute Current Visit: Yes - Problem List Review Problem List Initiated/Reviewed/Updated: Yes - My Orders Last 24 Hours: My Active Orders 09/15/18 08:14 Patient Status [ADT] Routine Activity as Tolerated [RC] PFP Communication Order [RC] ASDIRECTED Non Stress Test [RC] PER UNIT ROUTINE Notify Provider [RC] PFP Notify Provider [RC] PRN Vital Signs [RC] PER UNIT ROUTINE Nalbuphine [Nubain] 10 mg IVPUSH Q2H PRN Ondansetron [Zofran] 4 mg IVPUSH Q4H PRN Sodium Chloride 0.9% [Saline Flush] 10 ml FLUSH ASDIRECTED PRN Electronic Heart Tones Ext w TOCO [WOMSER] Routine Electronic Heart Tones Internal [WOMSER] Per Unit Routine Peripheral IV Insertion Adult [OM.PC] Routine Resuscitation Status Routine 09/15/18 08:15 Heart Tones [RC] ASDIRECTED Peripheral IV Care [RC] . DIRECTED Lactated Ringers [Ringers, Lactated] 1,000 ml IV ASDIRECTED Oxytocin/Lactated Ringers [Pitocin in LR 10 Units/1,000 ML] 10 unit in 1,000 ml IV .CONTINUOUS 09/15/18 08:35 RAPID PLASMA REAGIN,RPR [CHEM] Routine 09/15/18 10:27 PATIENT RETYPE [BBK] Routine 09/15/18 12:15 Ampicillin 1 gm Sodium Chloride 0.9% [Normal Saline] 100 ml IV Q4H 09/15/18 Breakfast Regular Diet [DIET] - Assessment Assessment:: 23 y/o G2 now P2002 PPD#0 from - Plan Plan:: * Routine cares * Encourage breast feeding * Discharge home in 1-2 days
[2018-09-15] MEDS ORDERED: Lanolin 100% Cream 7 GM Tube TOP PRN (16:41)
[2018-09-15] MEDS ORDERED: Benzocaine/Menthol 20%-0.5% Spray 56 GM Canister TOP PRN (16:41)
[2018-09-15] MEDS ORDERED: Acetaminophen 325 MG Tab PO PRN (16:41)
[2018-09-15] MEDS ORDERED: Ibuprofen 600 MG Tab PO PRN (16:41)
[2018-09-15] MEDS ORDERED: Witch Hazel Medicated Pads 40/Jar TOP PRN (16:41)
[2018-09-15] MEDS ORDERED: Docusate Sodium 100 MG Cap PO PRN (16:41)
--- NOTE | 2018-09-16 09:16 | PCM.SN ---
- Free Text/Narrative Note: Post Progress Note PPD # 1 Subjective: Doing well overall. Ambulating without difficulty. Lochia minimal. Voiding without difficulty. Tolerating regular diet without nausea or vomiting. Pain controlled with oral medications. Reports that the majority of her pain is in her back where the epidural was placed. Reports that the Tylenol and ibuprofen has been helping for this. Breast-feeding with bottle supplementation with minimal difficulty. Objective: Vitals: Vital Signs - 24 hr 09/15/18 09/15/18 09/15/18 11:15 17:22 20:14 Temperature 36.6 C 36.7 C Pulse, 85 90 Peripheral Respiratory 16 16 15 Rate Blood Pressure 108/70 108/73 O2 Sat by Pulse 100 98 99 Oximetry 09/16/18 04:54 Temperature 36.6 C Pulse, 79 Peripheral Respiratory 16 Rate Blood Pressure 103/60 O2 Sat by Pulse 97 Oximetry Physical Exam General: Alert and oriented, no acute distress Lungs: Clear to auscultation bilaterally Heart: Regular rate and rhythm Abdomen: Soft, minimal appropriate tenderness, non-distended, fundus midline, nontender, and 1 fingerbreadth below the umbilicus Extremities: Trace edema in bilateral lower extremities ASSESSMENT: 23-year-old female s/p normal vaginal delivery PPD #1, complicated by GBS positive and received antibiotics in labor PLAN: Doing well Breast-feeding with bottle supplementation with minimal difficulty. Assist as needed Lochia minimal. Continue to monitor for appropriate lochia. Continue routine care Anticipate discharge home today Rony Rios MD 9:15 AM 09/16/2018
--- NOTE | 2018-09-16 09:24 | PCM.DCSUM1 ---
Discharge Summary - Hospital Course Free Text/Narrative:: - Delivery Note Labor: Spontaneous Delivery Outcome: Livebirth Infant Delivery Method: Spontaneous Vaginal Delivery-Single Delivery Mode: Spontaneous Presentation: Right Occiput Anterior ([place]) Nuchal Cord: None Anesthesia Type: Epidural Amniotic Fluid Description: Clear Episiotomy Type: None Laceration: None Placenta: Intact, Spontaneous Cord: 3 Vessels Estimated Blood Loss: 200 Robert: Bulb Syringe, Stimulated, Warmed, Crane Used, Warmer Used Delivery Comments (Free Text/Narrative):: Patient found to be complete and began pushing. With maternal pushing effort head delivered from [place] presentation. No nuchal cord present. With gentle downward traction the shoulders and body delivered. placed on maternal abdomen. Cord clamped and cut. Cord blood obtained. Placenta allowed time to separate and expelled intact. Inspection of the perineum showed no laceration. HPI Initial Comments: - Delivery Note Labor: Spontaneous Delivery Outcome: Livebirth Delivery Method: Spontaneous Vaginal Delivery-Single Delivery Mode: Spontaneous Presentation: Right Occiput Anterior ([place]) Nuchal Cord: None Anesthesia Type: Epidural Amniotic Fluid Description: Clear Episiotomy Type: None Laceration: None Placenta: Intact, Spontaneous Cord: 3 Vessels Estimated Blood Loss: 200 Robert: Bulb Syringe, Stimulated, Warmed, Crane Used, Warmer Used Delivery Comments (Free Text/Narrative):: Patient found to be complete and began pushing. With maternal pushing effort head delivered from [place] presentation. No nuchal cord present. With gentle downward traction the shoulders and body delivered. placed on maternal abdomen. Cord clamped and cut. Cord blood obtained. Placenta allowed time to separate and expelled intact. Inspection of the perineum showed no laceration. Brief History: - Delivery Note. Labor: Spontaneous. Delivery Outcome: Livebirth. Delivery Method: Spontaneous Vaginal Delivery-Single. Delivery Mode: Spontaneous. Presentation: Right Occiput Anterior ( [place]). Nuchal Cord: None. Anesthesia Type: Epidural. Amniotic Fluid Description: Clear. Episiotomy Type: None. Laceration: None. Placenta: Intact , Spontaneous. Cord: 3 Vessels. Estimated Blood Loss: 200. Robert: Bulb Syringe, Stimulated, Warmed, Crane Used, Warmer Used. Delivery Comments ( Free Text/Narrative):: Patient found to be complete and began pushing. With maternal pushing effort head delivered from [place] presentation. No nuchal cord present. With gentle downward traction the shoulders and body delivered. Infant placed on maternal abdomen. Cord clamped and cut. Cord blood obtained. Placenta allowed time to separate and expelled intact. Inspection of the perineum showed no laceration. Diagnosis: Stroke: No - Discharge Data Discharge Date: 09/16/18 Discharge Disposition: Home, Self-Care 01 Condition: Good - Discharge Diagnosis/Problem(s) (1) 39 weeks gestation of SNOMED Code(s): 17761033 ICD Code: Z3A.39 - 39 WEEKS GESTATION OF Status: Acute Current Visit: Yes (2) GBS (group B Streptococcus carrier), +RV culture, currently SNOMED Code(s): 8717790180387, 871644721, 9969071058563 ICD Code: O99.820 - STREPTOCOCCUS B CARRIER STATE COMPLICATING Status: Acute Current Visit: Yes (3) Vaginal delivery SNOMED Code(s): 815935296 ICD Code: O80 - ENCOUNTER FOR FULL-TERM UNCOMPLICATED DELIVERY Status: Acute Current Visit: Yes - Patient Summary/Data Complications: None Consults: None Hospital Course: Amanda Vivar was admitted for spontaneous labor. On admission her cervix was dilated to 6 cm. She was GBS positive and was started on ampicillin for GBS prophylaxis. She was given an epidural for anesthesia. She had artificial rupture of membranes with clear fluid. She progressed to complete and began pushing. On 09/15/2018 she had a normal vaginal delivery of a live male at 1519. Apgars of 9 and 9. Weight of 3720 g (8 pounds 3.2 ounces) . Her course was uneventful. Her pain was well controlled and she had minimal lochia. She was ambulating, tolerating a regular diet and voiding normally. She was breast-feeding with bottle supplementation with minimal difficulty. She was afebrile and her hematocrit was 30.9 on admission. She desired to be discharged home on the morning of PPD #1. Her blood type is A+. - Patient Instructions Diet: Regular Diet as Tolerated Activity: Apply Ice, As Tolerated Activity, Other: Nothing in the vagina for 6 weeks Driving: May Drive Today Showering/Bathing: May Shower Notify Provider of: Fever, Increased Pain, Swelling and Redness, Drainage, Nausea and/or Vomiting Other/Special Instructions: Please contact your physician's office if you have heavy vaginal bleeding enough to soak a pad in less than an hour for several hours. Monitor for any signs of an infection in the breasts with severe pain or redness of the breast. - Discharge Plan *PRESCRIPTION DRUG MONITORING PROGRAM REVIEWED*: Not Applicable *COPY OF PRESCRIPTION DRUG MONITORING REPORT IN PATIENT [facility]: Not Applicable Home Medications: Home Meds PNV95/Ferrous Fumarate/FA [ Tablet] 1 tab PO DAILY 02/21/18 [History] Ondansetron [Zofran ODT] 4 mg PO Q6H PRN #10 tab.dis 02/26/18 [Rx] Acetaminophen [Tylenol] 650 mg PO Q6H PRN tablet 09/16/18 [Rx] Benzocaine/Menthol [Dermoplast Pain Relief [place]] 1 spray TOP ASDIRECTED PRN canister 09/16/18 [Rx] Docusate Sodium [Colace] 100 mg PO BID PRN cap 09/16/18 [Rx] Ibuprofen [Motrin] 600 mg PO Q6H PRN tablet 09/16/18 [Rx] Lanolin [Lansinoh HPA] 1 applic TOP ASDIRECTED PRN tube 09/16/18 [Rx] Witch Phylicia [Tucks] 1 pad TOP ASDIRECTED PRN pad 09/16/18 [Rx] Patient Handouts: Vaginal Delivery, Care After Referrals: Isela Patel MD [Primary Care Provider] - (Follow-up in 3-6 weeks for routine visit or earlier as needed.) - Discharge Summary/Plan Comment DC Time >30 min.: No - Patient Data Vitals - Most Recent: Last Vital Signs Temp 36.6 C 09/16/18 04:54 Pulse 79 09/16/18 04:54 Resp 16 09/16/18 04:54 BP 103/60 09/16/18 04:54 Pulse Ox 97 09/16/18 04:54 Weight - Most Recent: 82.1 kg I&O - Last 24 hours: Intake & Output 09/15/18 09/16/18 09/16/18 22:59 06:59 14:59 Intake Total 1000 Output Total 1450 Balance -450 Lab Results - Last 24 hrs: Laboratory Results - last 24 hr 09/15/18 09/15/18 Range/Units 08:35 08:35 RPR Non-reactive (NONREACTIVE) Blood Type A POSITIVE Gel Antibody Screen Negative Med Orders - Current: Current Medications Acetaminophen (Tylenol) 650 mg PO Q4H PRN PRN Reason: mild pain or fever Last Admin: 09/15/18 23:18 Dose: 650 mg Benzocaine/Menthol (Dermoplast Pain Relief [place]) 0 gm TOP ASDIRECTED PRN PRN Reason: Perineal Comfort Measure Docusate Sodium (Colace) 100 mg PO BID PRN PRN Reason: Constipation Emollient Ointment (Lansinoh Hpa) 0 gm TOP ASDIRECTED PRN PRN Reason: Sore Nipples Ibuprofen (Motrin) 600 mg PO Q6H PRN PRN Reason: Mild pain or fever Last Admin: 09/16/18 05:15 Dose: 600 mg Witch Phylicia (Tucks) 1 pad TOP ASDIRECTED PRN PRN Reason: Perineal Comfort Measure Discontinued Medications Diphenhydramine HCl (Benadryl) 25 mg IVPUSH Q6H PRN PRN Reason: Pruritis Ephedrine Sulfate (Ephedrine Sulfate) 5 mg IVPUSH ASDIRECTED PRN PRN Reason: Hypotension Fentanyl (Sublimaze) 100 mcg EPIDUR ONETIME PRN PRN Reason: Pain Fentanyl/Bupivacaine HCl (Fentanyl/Bupivacaine/Ns 2 Mcg-0.125% 100 Ml) 100 ml EPIDUR ASDIRECTED [facility] Ampicillin Sodium 2 gm/ Sodium (Chloride) 100 mls @ 200 mls/hr IV ONETIME ONE Stop: 09/15/18 08:43 Last Admin: 09/15/18 08:29 Dose: 200 mls/hr Ampicillin Sodium 1 gm/ Sodium (Chloride) 100 mls @ 200 mls/hr IV Q4H [facility] Last Admin: 09/15/18 16:19 Dose: Not Given Lactated Ringer's (Ringers, Lactated) 1,000 mls @ 100 mls/hr IV ASDIRECTED [facility] Last Admin: 09/15/18 10:26 Dose: 100 mls/hr Oxytocin/Lactated Ringer's (Pitocin In Lr 10 Units/1,000 Ml) 10 unit in 1,000 mls @ 500 mls/hr IV .CONTINUOUS [facility] Last Admin: 09/15/18 16:41 Dose: 500 mls/hr Nalbuphine HCl (Nubain) 10 mg IVPUSH Q2H PRN PRN Reason: Pain Ondansetron HCl (Zofran) 4 mg IVPUSH Q4H PRN PRN Reason: Nausea/Vomiting Ondansetron HCl (Zofran) 4 mg IVPUSH ONETIME PRN PRN Reason: Nausea/Vomiting Sodium Chloride (Saline Flush) 10 ml FLUSH ASDIRECTED PRN PRN Reason: Keep Vein Open Tranexamic Acid (Cyklokapron) Confirm Administered Dose 1,000 mg .ROUTE .[facility] ONE Stop: 09/15/18 18:48 Last Admin: 09/15/18 19:37 Dose: Not Given
[2018-09-16 13:08] VITALS: BP 111/82
== END 2018-09-16 16:19 | disposition home or self-care (01) | DRG 807 ==
LOC: JD.OB 07:44 → JD.OBCHECK 07:44 → JD.OB 08:14 → JD.OBCHECK 08:14 → OBSVTOIN 15:19 → JD.OB 15:20
PROVIDERS: ADMIT Obstetrics & Gynecology; ATTEND Obstetrics & Gynecology
PROC: 10E0XZZ Delivery of Products of Conception, External Approach (ICD-10-PCS; principal; 2018-09-15)
PROC: 10907ZC Drainage of Amniotic Fluid, Therapeutic from Products of Conception, Via Natural or Artificial Opening (ICD-10-PCS; 2018-09-15)
PROC: 4A1HXCZ Monitoring of Products of Conception, Cardiac Rate, External Approach (ICD-10-PCS; 2018-09-15)
DX: O99.824 Streptococcus B carrier state complicating childbirth (principal); Z37.0 Single live birth; Z3A.39 39 weeks gestation of pregnancy
CPT/HCPCS: 36415; 51702; 59025; 59409; 85027; 86592; 86850; 86900; 86901; A9270-GY; J0290; J2590; J3490; J7030; J7120

== ENCOUNTER 2019-06-28 12:09 | Emergency (ER) | payer MEDICAID ==
--- NOTE | 2019-06-28 13:27 | EDM.PDOC ---
ED HPI GENERAL MEDICAL PROBLEM - General Chief Complaint: Abdominal Pain Stated Complaint: FEVER/UNABLE TO KEEP LIQUIDS DOWN Time Seen by Provider: 06/28/19 12:25 Source of Information: Reports: Patient History Limitations: Reports: No Limitations - History of Present Illness INITIAL COMMENTS - FREE TEXT/NARRATIVE: The patient presents with fever, nausea, vomiting and left sided abdominal pain. She said this all started a couple days ago with the left sided abdominal pain. Then today she had a fever and vomiting. She has no cough, congestion or runny nose. She has no chest pain or shortness of breath. She has no dysuria or hematuria. She has no diarrhea. She is not sure if she is . Onset: Gradual Duration: Day(s): Location: Reports: Abdomen Quality: Reports: Sharp Severity: Mild Improves with: Reports: None Worsens with: Reports: None Associated Symptoms: Reports: Nausea/Vomiting. Denies: Chest Pain, Cough, Fever /Chills, Headaches, Shortness of Breath - Related Data Allergies Allergy/AdvReac Type Severity Reaction Status Date / Time No Known Allergies Allergy Verified 06/28/19 12:23 Home Meds: Home Meds Ondansetron [Zofran ODT] 4 mg PO Q6H PRN #20 tab.dis 06/28/19 [Rx] Past Medical History - Past Health History Medical/Surgical History: Denies Medical/Surgical History Cardiovascular History: Reports: None Respiratory History: Reports: None Gastrointestinal History: Reports: None Genitourinary History: Reports: None CLIMBING GUIDE History: Reports: Musculoskeletal History: Reports: None Neurological History: Reports: None Psychiatric History: Reports: None Endocrine/Metabolic History: Reports: None Hematologic History: Reports: None Immunologic History: Reports: None Oncologic (Cancer) History: Reports: None Dermatologic History: Reports: None - Infectious Disease History Infectious Disease History: Reports: None - Past Surgical History HEENT Surgical History: Reports: Oral Surgery Social & Family History - Family History Family Medical History: Noncontributory - Tobacco Use Smoking Status *Q: Current Every Day Smoker Years of Tobacco use: 3 Packs/Tins Daily: 0.1 - Caffeine Use Caffeine Use: Reports: None - Recreational Drug Use Recreational Drug Use: No - Sexual History Sexual History: Reports: Sexually Active - Living Situation & Occupation Living situation: Reports: with Significant Other ED ROS GENERAL - Review of Systems Review Of Systems: See Below Constitutional: Reports: Fever HEENT: Reports: No Symptoms Respiratory: Reports: No Symptoms Cardiovascular: Reports: No Symptoms Endocrine: Reports: No Symptoms GI/Abdominal: Reports: Abdominal Pain, Nausea, Vomiting. Denies: Diarrhea : Reports: No Symptoms Musculoskeletal: Reports: No Symptoms Skin: Reports: No Symptoms ED EXAM, GI/ABD - Physical Exam Exam: See Below Exam Limited By: No Limitations General Appearance: Alert, No Apparent Distress Ears: Normal External Exam Nose: Normal Inspection Head: Atraumatic, Normocephalic Neck: Normal Inspection Respiratory/Chest: No Respiratory Distress, Lungs Clear, Normal Breath Sounds Cardiovascular: Regular Rate, Rhythm, No Edema, No Murmur GI/Abdominal Exam: Soft, Non-Tender, No Organomegaly, No Mass Back Exam: Normal Inspection Extremities: Normal Inspection Course - Vital Signs Last Recorded V/S: Last Vital Signs Temp 97.9 F 06/28/19 12:21 Pulse 78 06/28/19 12:21 Resp 16 06/28/19 12:21 BP 136/93 H 06/28/19 12:21 Pulse Ox 98 06/28/19 12:21 - Orders/Labs/Meds Labs: Laboratory Tests 06/28/19 06/28/19 06/28/19 Range/Units 12:36 12:42 12:42 WBC 7.77 (3.98-10.04) K/mm3 RBC 4.11 (3.98-5.22) M/mm3 Hgb 12.0 D (11.2-15.7) gm/dl Hct 36.9 (34.1-44.9) % MCV 89.8 (79.4-94.8) fl MCH 29.2 (25.6-32.2) pg MCHC 32.5 (32.2-35.5) g/dl RDW Std Deviation 50.2 H (36.4-46.3) fL Plt Count 258 (182-369) K/mm3 MPV 11.2 (9.4-12.3) fl Neut % (Auto) 72.5 H (34.0-71.1) % Lymph % (Auto) 21.6 (19.3-51.7) % [place] % (Auto) 5.1 (4.7-12.5) % Eos % (Auto) 0.3 L (0.7-5.8) Baso % (Auto) 0.4 (0.1-1.2) % Neut # (Auto) 5.63 (1.56-6.13) K/mm3 Lymph # (Auto) 1.68 (1.18-3.74) K/mm3 [place] # (Auto) 0.40 H (0.24-0.36) K/mm3 Eos # (Auto) 0.02 L (0.04-0.36) K/mm3 Baso # (Auto) 0.03 (0.01-0.08) K/mm3 Sodium 141 (136-145) mEq/L Potassium 3.6 (3.5-5.1) mEq/L Chloride 105 (98-107) mEq/L Carbon Dioxide 25 (21-32) mEq/L Anion Gap 14.6 (5-15) BUN 8 (7-18) mg/dL Creatinine 0.4 L (0.55-1.02) mg/dL Est Cr Clr Drug Dosing 196.83 mL/min Estimated GFR (MDRD) > 60 (>60) mL/min BUN/Creatinine Ratio 20.0 H (14-18) Glucose 97 (74-106) mg/dL Calcium 8.5 (8.5-10.1) mg/dL Total Bilirubin 0.4 (0.2-1.0) mg/dL AST 11 L (15-37) U/L ALT 12 L (14-59) U/L Alkaline Phosphatase 77 (46-116) U/L Total Protein 8.0 (6.4-8.2) g/dl Albumin 4.2 (3.4-5.0) g/dl Globulin 3.8 gm/dL Albumin/Globulin Ratio 1.1 (1-2) Lipase 73 (73-393) U/L HCG, Qual (NEGATIVE) Urine Color Yellow (Yellow) Urine Appearance Slt cloudy H (Clear) Urine pH 8.5 H (5.0-8.0) Ur Specific [place] 1.020 (1.005-1.030) Urine Protein 2+ H (Negative) Urine Glucose (UA) Negative (Negative) Urine Ketones Negative (Negative) Urine Occult Blood Negative (Negative) Urine Nitrite Negative (Negative) Urine Bilirubin Negative (Negative) Urine Urobilinogen 0.2 (0.2-1.0) Ur Leukocyte Esterase Negative (Negative) Urine RBC Not seen (0-5) /hpf Urine WBC 0-5 (0-5) /hpf Ur Squamous Epith Cells 10-20 H (0-5) /hpf Urine Bacteria Not seen (FEW) /hpf Urine Mucus Not seen (FEW) /hpf 06/28/19 Range/Units 12:42 WBC (3.98-10.04) K/mm3 RBC (3.98-5.22) M/mm3 Hgb (11.2-15.7) gm/dl Hct (34.1-44.9) % MCV (79.4-94.8) fl MCH (25.6-32.2) pg MCHC (32.2-35.5) g/dl RDW Std Deviation (36.4-46.3) fL Plt Count (182-369) K/mm3 MPV (9.4-12.3) fl Neut % (Auto) (34.0-71.1) % Lymph % (Auto) (19.3-51.7) % [place] % (Auto) (4.7-12.5) % Eos % (Auto) (0.7-5.8) Baso % (Auto) (0.1-1.2) % Neut # (Auto) (1.56-6.13) K/mm3 Lymph # (Auto) (1.18-3.74) K/mm3 [place] # (Auto) (0.24-0.36) K/mm3 Eos # (Auto) (0.04-0.36) K/mm3 Baso # (Auto) (0.01-0.08) K/mm3 Sodium (136-145) mEq/L Potassium (3.5-5.1) mEq/L Chloride (98-107) mEq/L Carbon Dioxide (21-32) mEq/L Anion Gap (5-15) BUN (7-18) mg/dL Creatinine (0.55-1.02) mg/dL Est Cr Clr Drug Dosing mL/min Estimated GFR (MDRD) (>60) mL/min BUN/Creatinine Ratio (14-18) Glucose (74-106) mg/dL Calcium (8.5-10.1) mg/dL Total Bilirubin (0.2-1.0) mg/dL AST (15-37) U/L ALT (14-59) U/L Alkaline Phosphatase (46-116) U/L Total Protein (6.4-8.2) g/dl Albumin (3.4-5.0) g/dl Globulin gm/dL Albumin/Globulin Ratio (1-2) Lipase (73-393) U/L HCG, Qual Negative (NEGATIVE) Urine Color (Yellow) Urine Appearance (Clear) Urine pH (5.0-8.0) Ur Specific [place] (1.005-1.030) Urine Protein (Negative) Urine Glucose (UA) (Negative) Urine Ketones (Negative) Urine Occult Blood (Negative) Urine Nitrite (Negative) Urine Bilirubin (Negative) Urine Urobilinogen (0.2-1.0) Ur Leukocyte Esterase (Negative) Urine RBC (0-5) /hpf Urine WBC (0-5) /hpf Ur Squamous Epith Cells (0-5) /hpf Urine Bacteria (FEW) /hpf Urine Mucus (FEW) /hpf - Re-Assessments/Exams Free Text/Narrative Re-Assessment/Exam: 06/28/19 13:26 I ordered labs and a urine. Her CBC and CMP look good. Her lipase is normal. Her HCG is negative. Her UA shows no UTI. Departure - Departure Time of Disposition: 13:30 Disposition: Home, Self-Care 01 Condition: Good Clinical Impression: Gastroenteritis - Discharge Information *PRESCRIPTION DRUG MONITORING PROGRAM REVIEWED*: Not Applicable *COPY OF PRESCRIPTION DRUG MONITORING REPORT IN PATIENT [facility]: Not Applicable Prescriptions: Ondansetron [Zofran ODT] 4 mg PO Q6H PRN #20 tab.dis PRN Reason: Nausea\vomiting Referrals: Isela Patel MD [Primary Care Provider] - Forms: ED Department Discharge Additional Instructions: Drink plenty of fluids. Take zofran every 6 hours as needed for nausea and vomiting. Take tylenol or motrin for any fever or pain. Please return if you are worse. Sepsis Event Note - Evaluation Sepsis Screening Result: No Definite Risk - Focused Exam Vital Signs: Vital Signs Temp Pulse Resp BP Pulse Ox 06/28/19 12:21 97.9 F 78 16 136/93 H 98 Date Exam was Performed: 06/28/19 Time Exam was Performed: 13:29
[2019-06-28 13:44] VITALS: BP 121/81; PULSE 73
== END 2019-06-28 13:40 | disposition home or self-care (01) ==
LOC: JD.ED 12:09
DX: K52.9 Noninfective gastroenteritis and colitis, unspecified (principal); F17.210 Nicotine dependence, cigarettes, uncomplicated
CPT/HCPCS: 36415; 80053; 81001; 83690; 84703; 85025; 99283; 99284

== ENCOUNTER 2021-10-13 05:14 | Inpatient (IN) | payer MEDICAID ==
[2021-10-13] MEDS ORDERED: Lidocaine 1% 50 ML MDV INJECT ONE (06:16)
[2021-10-13] MEDS ORDERED: Nalbuphine HCl 10 MG/ 1ML Amp IVPUSH PRN (06:16)
[2021-10-13] MEDS ORDERED: Sodium Chloride 0.9% 10 ML Syringe FLUSH PRN (06:16)
[2021-10-13] MEDS ORDERED: Ondansetron 4 MG/2 ML SDV IVPUSH PRN (06:16)
[2021-10-13] MEDS ORDERED: Oxytocin/Lactated Ringers 10 UNIT/1,000 ML BAG IV SCH ×2 (06:30)
[2021-10-13] MEDS: Lactated Ringers 1,000 ML IV SCH ×3 (06:47→10:56)
[2021-10-13] MEDS ORDERED: fentaNYL 100 MCG/2 ML SDV EPIDUR PRN (08:05)
[2021-10-13] MEDS ORDERED: ePHEDrine 50 MG/ML SDV IVPUSH PRN (08:05)
[2021-10-13] MEDS ORDERED: diphenhydrAMINE 50 MG/ML SDV IVPUSH PRN (08:05)
[2021-10-13] MEDS ORDERED: Bupivacaine/fentaNYL/NS 100 ML Bag EPIDUR PRN (08:05)
[2021-10-13] MEDS ORDERED: Sodium Chloride 0.9% 10 ML Syringe FLUSH SCH (09:00)
[2021-10-13] MEDS ORDERED: Benzocaine/Menthol 20%-0.5% Spray 78 GM Cannister TOP PRN (15:41)
[2021-10-13] MEDS ORDERED: Docusate Sodium 100 MG Cap PO PRN (15:41)
[2021-10-13] MEDS ORDERED: Acetaminophen 325 MG Tab PO PRN (15:41)
[2021-10-13] MEDS ORDERED: Witch Hazel Medicated Pads 40/Jar TOP PRN (15:41)
[2021-10-13] MEDS: Ibuprofen 600 MG Tab PO PRN (17:41)
[2021-10-13] MEDS ORDERED: Bupivacaine 0.25% 10 ML SDV ONE (18:00)
[2021-10-14] MEDS: Ibuprofen 600 MG Tab PO PRN (01:24)
[2021-10-14 15:23] VITALS: BP 117/71; PULSE 84
== END 2021-10-14 04:25 | disposition home or self-care (01) | DRG 807 ==
LOC: JD.OBCHECK 05:14 → JD.OB 05:14 → JD.OBCHECK 07:04 → JD.OB 07:05 → OBSVTOIN 14:37 → JD.OB 14:55
PROVIDERS: ADMIT Obstetrics & Gynecology; ATTEND Obstetrics & Gynecology
PROC: 10E0XZZ Delivery of Products of Conception, External Approach (ICD-10-PCS; principal; 2021-10-13)
PROC: 3E0R3BZ Introduction of Anesthetic Agent into Spinal Canal, Percutaneous Approach (ICD-10-PCS; 2021-10-13)
PROC: 00HU33Z Insertion of Infusion Device into Spinal Canal, Percutaneous Approach (ICD-10-PCS; 2021-10-13)
DX: O80 Encounter for full-term uncomplicated delivery (principal); Z37.0 Single live birth; Z3A.38 38 weeks gestation of pregnancy; Z87.891 Personal history of nicotine dependence
CPT/HCPCS: 36415; 51701; 51702; 59025; 59409; 84112; 85025; 86592; 86850; 86900; 86901; A9270-GY; J2590; J3010; J3490; J7120

== ENCOUNTER 2022-04-06 13:17 | Emergency (ER) | payer MEDICAID ==
[2022-04-06 13:39] VITALS: BP 113/69; PULSE 81
[2022-04-06] MEDS ORDERED: Sodium Chloride 0.9% 10 ML Syringe FLUSH PRN (13:54)
== END 2022-04-06 19:16 | disposition home or self-care (01) ==
LOC: JD.ED 13:17
DX: O99.891 Other specified diseases and conditions complicating pregnancy (principal); R10.9 Unspecified abdominal pain; Z3A.01 Less than 8 weeks gestation of pregnancy
CPT/HCPCS: 36415; 76817; 76817-26; 84702; 85025; 86900; 86901; 99284

== ENCOUNTER 2022-12-01 06:29 | Inpatient (IN) | payer MEDICAID ==
[2022-12-01] MEDS ORDERED: Oxytocin 10 Units/1 ML SDV ONE (06:43)
[2022-12-01] MEDS ORDERED: Lidocaine 1% 50 ML MDV INJECT PRN (06:56)
[2022-12-01] MEDS ORDERED: Acetaminophen 325 MG Tab PO PRN ×2 (06:56→08:42)
[2022-12-01] MEDS ORDERED: Nalbuphine 10 MG/0.5 ML Syringe IVPUSH PRN (06:56)
[2022-12-01] MEDS ORDERED: Sodium Chloride 0.9% 10 ML Syringe FLUSH PRN (06:56)
[2022-12-01] MEDS ORDERED: Lactated Ringers 1,000 ML IV SCH (07:00)
[2022-12-01] MEDS ORDERED: Oxytocin 10 Units/1 ML SDV IM ONE (07:15)
[2022-12-01 07:36] LABS: HEMATOCRIT 36.1 % (37.0-47.0); HEMOGLOBIN 12.4 gm/dl (12.0-16.0); MEAN CORPUSCULAR HEMOGLOBIN 33.5 pg (28.0-32.0); MEAN CORPUSCULAR HGB CONC 34.3 g/dl (32.0-36.0); MEAN CORPUSCULAR VOLUME 97.6 fl (83.0-99.0); MEAN PLATELET VOLUME 11.9 fl (9.4-12.3); PLATELET COUNT,PLT 211 K/mm3 (150-400); WHITE BLOOD CELL COUNT,WBC 20.73 K/mm3 (3.9-11.3)
[2022-12-01] MEDS ORDERED: Docusate Sodium 100 MG Cap PO PRN (08:42)
[2022-12-01] MEDS ORDERED: Witch Hazel Medicated Pads 40/Jar TOP PRN (08:42)
[2022-12-01] MEDS ORDERED: Benzocaine/Menthol 20%-0.5% Spray 78 GM Cannister TOP PRN (08:42)
[2022-12-01] MEDS ORDERED: Sodium Chloride 0.9% 10 ML Syringe FLUSH SCH (09:00)
[2022-12-01] MEDS: Ibuprofen 600 MG Tab PO PRN (20:02)
[2022-12-02] MEDS: Ibuprofen 600 MG Tab PO PRN (07:44)
[2022-12-02 12:24] VITALS: BP 111/82; PULSE 77
== END 2022-12-02 10:55 | disposition home or self-care (01) | DRG 807 ==
LOC: JD.OBCHECK 06:29 → JD.OB 06:33
PROVIDERS: ADMIT Obstetrics & Gynecology; ATTEND Obstetrics & Gynecology
PROC: 10E0XZZ Delivery of Products of Conception, External Approach (ICD-10-PCS; principal; 2022-12-01)
DX: O42.02 Full-term premature rupture of membranes, onset of labor within 24 hours of rupture (principal); Z37.0 Single live birth; Z3A.38 38 weeks gestation of pregnancy; Z98.890 Other specified postprocedural states; Z87.891 Personal history of nicotine dependence
CPT/HCPCS: 36415; 59409; 85027; 86592; A9270-GY; J2590